=== PATIENT | female | born 1935 | race Hispanic/Latino ===

== ENCOUNTER 2017-02-17 14:54 | Emergency (ER) | payer MEDICARE ==
[~2017-02-17 14:54] MED LIST: APIX2.5T PO; ASPI-891 PO; CELE400C10 PO; COLC0.6T67 PO; ESOM40CA PO; FENO54TA6 PO; METO100T14 PO
[2017-02-17] MEDS ORDERED: KETOROLAC TROMETHAMINE 30MG/ML ONE (15:33)
== END 2017-02-17 17:04 | disposition home or self-care (01) ==
LOC: EDH 14:54
DX: M16.0 Bilateral primary osteoarthritis of hip (principal); I10 Essential (primary) hypertension; E78.5 Hyperlipidemia, unspecified
CPT/HCPCS: 72170; 96372; 99284; J1885